=== PATIENT | male | born 1940 | race Caucasian/White ===

== ENCOUNTER → 2016-07-15 | Outpatient (CLI) | payer OTHER | LOC: FLAB 09:19 | PROVIDERS: ATTEND Internal Medicine Cardiovascular Disease | DX: Z03.89 Encounter for observation for other suspected diseases and conditions ruled out (principal) ==

== ENCOUNTER → 2016-09-03 | Outpatient (CLI) | payer OTHER | LOC: FIMAGING 08:20 | PROVIDERS: ATTEND Specialist | DX: Z00.01 Encounter for general adult medical examination with abnormal findings (principal); N20.9 Urinary calculus, unspecified ==

== ENCOUNTER → 2017-10-18 | Outpatient (CLI) | payer OTHER | LOC: FIMAGING 09:11 | PROVIDERS: ATTEND Specialist | DX: Z09 Encounter for follow-up examination after completed treatment for conditions other than malignant neoplasm (principal); N20.0 Calculus of kidney ==

== ENCOUNTER → 2018-03-20 | Outpatient (CLI) | payer OTHER | LOC: FIMAGING 11:12 | PROVIDERS: ATTEND Internal Medicine | DX: M25.551 Pain in right hip (principal) ==

== ENCOUNTER 2018-05-19 12:05 | Day surgery (SDC) | payer OTHER ==
[~2018-05-19 12:05] MED LIST: ALTEPLASE 2 MG VIAL IVP PRN; FLUMAZENIL 0.5 MG/5 ML MDV IVP PRN; GLUCAGON HCL 1 MG VIAL IVP PRN; HEPARIN 10,000 UNIT/10 ML MDV (1,000 UNIT/ML) IVP PRN; MEPERIDINE 25 MG/ML SYR IVP PRN; MIDAZOLAM 2 MG/2 ML VIAL IVP PRN; NALOXONE HCL 0.4 MG/ML INJ IVP PRN; NS 1,000 ML IV SCH; PROTAMINE SULFATE 50 MG/5 ML VIAL IVP PRN; fentaNYL 100 MCG/2 ML INJ IVP PRN
[2018-05-19] MEDS ORDERED: IOPAMIDOL (ISOVUE-M 300) 15 ML VIAL ONE (13:07)
[2018-05-19] MEDS ORDERED: TRIAMCINOLONE ACETONIDE 200 MG/5 ML MDV IM ONE (13:07)
[2018-05-19] MEDS ORDERED: MIDAZOLAM 2 MG/2 ML VIAL ONE (13:18)
[2018-05-19] MEDS ORDERED: fentaNYL 100 MCG/2 ML INJ ONE (13:18)
[2018-05-19] MEDS ORDERED: ONDANSETRON 4 MG/2 ML VIAL IVP PRN (14:06)
--- NOTE | 2018-05-19 14:06 | PDPROPOC ---
Sedation Plan of Care ASA Classification: ASA 2 Mallampati Score: Class 2 Mallampati Reference Image:
--- NOTE | 2018-05-19 14:07 | PDRADPN ---
Radiology Procedure Note Date of Procedure: 05/19/18 Radiologist: Jamey Thurston Anesthesia: IV Sedation Pre-op Diagnosis: back pain Post-op Diagnosis: same Procedure: L4-L5 PRADEEP, L4 selective nerve root block on right Inf/Abcess present in the surg proc area at time of surgery?: No
--- NOTE | 2018-05-19 14:07 | PDRADPRE ---
Radiology History & Physical Indication for procedure: back pain Home medications: Acetaminophen with Codeine [Acetaminophen-Cod #3 Tablet] 1 each PO DAILY PRN 09/04 [Last Taken 05/14/18] Atorvastatin Calcium [Lipitor 20 mg (*)] 20 mg PO DAILY 12/24/14 [Last Taken ] Butal/Asp/Caffeine-Fiorinal [Fiorinal 50-325-40 mg Cap] 1 each PO Q4 PRN [Last Taken 04/24/18] Calcium Carb W/Vit D [Calcium Carb W/Vit D 500/200 (*)] 500 mg PO EVERY OTHER DAY 12/24/14 [Last Taken 05/14/18] Furosemide [Lasix 80 MG (*)] 40 mg PO BID 12/24/14 [Last Taken 05/15/18] Herbals/Supplements -Info Only 1 ea PO DAILY 12/24/14 [Last Taken 04/21/16] Magnesium Oxide [Magnesium Oxide 400 mg (*)] 200 mg PO EVERY OTHER DAY 12/24/14 [Last Taken 05/14/18] Multivitamins [Multivitamin (*)] 1 each PO DAILY 12/24/14 [Last Taken 05/15/18] PHENobarbital [PHENOBARBITAL] 32.4 mg PO HS 12/24/14 [Last Taken 05/14/18] Potassium Chloride [Klor-Con 10] 10 meq PO EVERY OTHER DAY 12/24/14 [Last Taken 05/14/18] SUMAtriptan [Imitrex 25 MG (*)] 25 mg PO Q2H PRN 12/24/14 [Last Taken 12/13/14] Zolpidem Tartrate [Ambien 10 mg] 10 mg PO HS PRN 12/24/14 [Last Taken 02/21/16] Excedrin Migraine Geltab 250 mg PO PRN 04/22/16 [Last Taken 05/15/18] GABAPENTIN 600 mg PO BID 04/22/16 [Last Taken 05/15/18] Allergies/Adverse Reactions: sulfamethoxazole [From Bactrim] Allergy (Mild, Verified 05/20/16 09:51) shakes trimethoprim [From Bactrim] Allergy (Verified 03/21/14 09:30) Mental status: A&Ox3
[2018-05-19 14:48] VITALS: BP 134/83
== END 2018-05-19 14:59 | disposition home or self-care (01) ==
LOC: FIMAGING 12:05
PROVIDERS: ATTEND Radiology Diagnostic Radiology
DX: M54.16 Radiculopathy, lumbar region (principal)
CPT/HCPCS: J2250; J3010; J3301; Q9967

== ENCOUNTER 2018-09-11 12:04 | Day surgery (SDC) | payer OTHER ==
[2018-09-11] MEDS ORDERED: fentaNYL 100 MCG/2 ML INJ IVP PRN (12:05)
[2018-09-11] MEDS ORDERED: FLUMAZENIL 0.5 MG/5 ML MDV IVP PRN (12:05)
[2018-09-11] MEDS ORDERED: NALOXONE HCL 0.4 MG/ML INJ IVP PRN (12:05)
[2018-09-11] MEDS ORDERED: MEPERIDINE 25 MG/ML SYR IVP PRN (12:05)
[2018-09-11] MEDS ORDERED: MIDAZOLAM 2 MG/2 ML VIAL IVP PRN (12:05)
[2018-09-11] MEDS ORDERED: NS 1,000 ML IV SCH (12:15)
--- NOTE | 2018-09-11 13:19 | PDRADPRE ---
Radiology History & Physical Indication for procedure: back pain Home medications: Acetaminophen with Codeine [Acetaminophen-Cod #3 Tablet] 1 each PO DAILY PRN 09/04 [Last Taken 05/14/18] Atorvastatin Calcium [Lipitor 20 mg (*)] 20 mg PO DAILY 12/24/14 [Last Taken ] Butal/Asp/Caffeine-Fiorinal [Fiorinal 50-325-40 mg Cap] 1 each PO Q4 PRN [Last Taken 04/24/18] Calcium Carb W/Vit D [Calcium Carb W/Vit D 500/200 (*)] 500 mg PO EVERY OTHER DAY 12/24/14 [Last Taken 05/14/18] Furosemide [Lasix 80 MG (*)] 40 mg PO BID 12/24/14 [Last Taken 05/15/18] Herbals/Supplements -Info Only 1 ea PO DAILY 12/24/14 [Last Taken 04/21/16] Magnesium Oxide [Magnesium Oxide 400 mg (*)] 200 mg PO EVERY OTHER DAY 12/24/14 [Last Taken 05/14/18] Multivitamins [Multivitamin (*)] 1 each PO DAILY 12/24/14 [Last Taken 05/15/18] PHENobarbital [PHENOBARBITAL] 32.4 mg PO HS 12/24/14 [Last Taken 05/14/18] Potassium Chloride [Klor-Con 10] 10 meq PO EVERY OTHER DAY 12/24/14 [Last Taken 05/14/18] SUMAtriptan [Imitrex 25 MG (*)] 25 mg PO Q2H PRN 12/24/14 [Last Taken 12/13/14] Zolpidem Tartrate [Ambien 10 mg] 10 mg PO HS PRN 12/24/14 [Last Taken 02/21/16] Excedrin Migraine Geltab 250 mg PO PRN 04/22/16 [Last Taken 05/15/18] GABAPENTIN 600 mg PO BID 04/22/16 [Last Taken 05/15/18] Allergies/Adverse Reactions: sulfamethoxazole [From Bactrim] Allergy (Mild, Verified 05/20/16 09:51) shakes trimethoprim [From Bactrim] Allergy (Verified 09/11/18 12:36) shakes Mental status: A&Ox3
--- NOTE | 2018-09-11 13:19 | PDPROPOC ---
Sedation Plan of Care ASA Classification: ASA 2 Mallampati Score: Class 2 Mallampati Reference Image:
[2018-09-11] MEDS ORDERED: TRIAMCINOLONE ACETONIDE 200 MG/5 ML MDV IM ONE (13:36)
[2018-09-11] MEDS ORDERED: IOPAMIDOL (ISOVUE-M 300) 15 ML VIAL ONE (13:36)
[2018-09-11] MEDS ORDERED: ONDANSETRON 4 MG/2 ML VIAL IVP PRN (14:03)
--- NOTE | 2018-09-11 14:04 | PDRADPN ---
Radiology Procedure Note Date of Procedure: 09/11/18 Radiologist: Jamey Thurston Anesthesia: IV Sedation Pre-op Diagnosis: back pain Post-op Diagnosis: same Procedure: L4-L5 PRADEEP, right L4 SNRB Inf/Abcess present in the surg proc area at time of surgery?: No
[2018-09-11 15:33] VITALS: BP 152/94
== END 2018-09-11 15:37 | disposition home or self-care (01) ==
LOC: FIMAGING 12:04
PROVIDERS: ATTEND Physician Assistant
DX: M54.17 Radiculopathy, lumbosacral region (principal)
CPT/HCPCS: J2250; J2310; J3010; J3301; Q9967

== ENCOUNTER 2018-10-03 12:29 | Inpatient (IN) | payer OTHER ==
--- NOTE | 2018-10-03 13:03 | EDPHY ---
H & P Stated Complaint: c/o worsening R lower back pain, hx bulging disc at L4-5 Time Seen by Provider: 10/03/18 13:02 - Personal History Tetanus Vaccine Date: within 10 years - Medical/Surgical History Hx Asthma: No Hx Chronic Respiratory Disease: No Hx Diabetes: No Hx Cardiac Disease: Yes Hx Renal Disease: No Hx Cirrhosis: No Hx Alcoholism: No Hx HIV/AIDS: No Hx Splenectomy or Spleen Trauma: No Other PMH: atrial fib (failed CV 5 years ago), pacemaker placed, hypertension, hyperlipidemia, bilat lower extremity edema. CHF, seizure (syncopal petite mal) , migraine, prostate cancer, kidney stones present in both kidneys - Social History Smoking Status: Former smoker Constitutional: Initial Vital Signs Temperature (C) 36.7 C 10/03/18 12:33 Heart Rate 70 10/03/18 12:33 Respiratory Rate 18 10/03/18 12:33 Blood Pressure 148/75 H 10/03/18 12:33 O2 Sat (%) 99 10/03/18 12:33 O2 Delivery Mode Room Air Allergies/Adverse Reactions: sulfamethoxazole [From Bactrim] Allergy (Mild, Verified 10/03/18 12:38) shakes trimethoprim [From Bactrim] Allergy (Verified 10/03/18 12:38) shakes Home Medications: Medication Instructions Recorded Acetaminophen with Codeine 1 each PO DAILY PRN 12/24/14 [Acetaminophen-Cod #3 Tablet] Atorvastatin Calcium [Lipitor 20 20 mg PO DAILY 12/24/14 mg (*)] Calcium Carb W/Vit D [Calcium Carb 500 mg PO EVERY OTHER DAY 12/24/14 W/Vit D 500/200 (*)] Furosemide [Lasix 80 MG (*)] 40 mg PO BID 12/24/14 Herbals/Supplements -Info Only 1 ea PO DAILY 12/24/14 Multivitamins [Multivitamin (*)] 1 each PO DAILY 12/24/14 PHENobarbital [PHENOBARBITAL] 32.4 mg PO HS 12/24/14 Potassium Chloride [Klor-Con 10] 10 meq PO EVERY OTHER DAY 12/24/14 SUMAtriptan [Imitrex 25 MG (*)] 25 mg PO Q2H PRN 12/24/14 Zolpidem Tartrate [Ambien 10 mg] 10 mg PO HS PRN 12/24/14 Metoprolol Tartrate [Lopressor 25 12.5 mg PO BID #90 tab 01/10/15 mg (*)] Pantoprazole Sodium [Protonix 40mg 40 mg PO BID #60 tab 04/14/15 (*)] Excedrin Migraine Geltab 250 mg PO PRN 04/22/16 GABAPENTIN 600 mg PO BID 04/22/16 Medical Decision Making - Diagnostics Imaging Results: Imaging Impressions Lumbar Spine CT 10/03/18 13:47 Impression: Multilevel degenerative disk disease, worse at L4-L5 where there is severe spinal canal stenosis and right lateral disk protrusion/extrusion causing severe right neural foraminal and impingement of the exiting nerve in the lateral recess. Findings and recommendations discussed with Hal Longo MD at 1616 hour, . Myelogram,Lumbar Spine 10/03/18 14:29 Impression: Successful injection of intrathecal contrast. Plan: CT myelogram to follow. Imaging: Discussed imaging studies w/ malware analyst Radiologist, I viewed and interpreted images myself ED Course/Re-evaluation: CHIEF COMPLAINT: Right lower back pain HISTORY OF PRESENT ILLNESS: The patient is a 78 y/o male with a history of an L4-5 disc herniation, lumbar vertebroplasty, atrial fibrillation, pacemaker, and kidney stones complaining of worsening right lower back pain onset at 14:00 yesterday, 23 hours ago. In May and August he had a spinal injection by Dr. Thurston. He had an x-ray recently which showed no acute findings. After developing the pain yesterday he noted that the pain starts below his right kidney, through his hip, and down to his right toes. Due to the pain he is having difficulty bearing weight. He did take a steroid taper today without relief of symptoms. No fever, headache, body aches, lightheadedness, chest pain, heart palpitations, shortness of breath, cough, abdominal pain, urinary or bowel complaints, numbness, paresthesias. REVIEW OF SYSTEMS: A comprehensive 10 system review of systems is otherwise negative aside from elements mentioned in the history of present illness and medical decision making. PHYSICAL EXAM: HR, BP, O2 Sat, RR. Temp noted General Appearance: Alert, well hydrated, appropriate, and non-toxic appearing. Head: Atraumatic without scalp tenderness or obvious injury Eyes: Pupils equal, round, reactive to light and accommodation, EOMI, no trauma , no injection. Ears: Clear bilaterally, no perforation, normal landmarks Nose: Atraumatic, no rhinorrhea, clear. Throat: There is no erythema or exudates, no lesions, normal tonsils, mucus membranes moist. Neck: Supple, 2+ carotid upstroke, nontender, no lymphadenopathy. Respiratory: No retractions, no distress, no wheezes, and no accessory muscle use. Lungs are clear to auscultation bilaterally. Cardiovascular: Regular rate and rhythm, no murmurs, rubs, or gallops. Bilateral carotid, radial, dorsalis pedis, and posterior tibial pulses intact. Good capillary refill all extremities. Gastrointestinal: Abdomen is soft, nontender, non-distended, no masses, no rebound, no guarding, no peritoneal signs. Musculoskeletal: Normal active ROM of all extremities, atraumatic. Neurological: Alert, appropriate, and interactive. The patient has normal DTRs and non-focal cranial nerves, motor, sensory, and cerebellar exam. Skin: No rashes, good turgor, no nodules on palpation. Past medical history: Atrial fib (failed CV 5 years ago), L4-5 disc herniation, hypertension, hyperlipidemia, bilateral lower extremity edema. CHF, seizure ( syncopal petite mal), migraine, prostate cancer, kidney stones present in both kidneys Past surgical history: Pacemaker, lumbar vertebroplasty Family history: Denies Social history: Lives in [place], , at bedside DIAGNOSTICS/PROCEDURES/CRITICAL CARE TIME: Lumbar CT myelogram: L4/5 acute disc extrusion impinging on the L4/5 nerve root. DIFFERENTIAL DIAGNOSIS: The differential diagnosis for the patient's back pain included but was not limited to musculoskeletal pain, epidural abscess, herniated disk, spinal fracture, and intra-abdominal causes including urinary system. MEDICAL DECISION MAKING: The patient is a 78 y/o male with a history of an L4-5 disc herniation, lumbar vertebroplasty, atrial fibrillation, pacemaker, and kidney stones presenting with worsening right lower back pain radiating down his leg, onset at 14:00 yesterday, 23 hours ago. After developing the pain yesterday he noted that the pain starts below his right kidney, through his hip, and down to his right toes. Due to the pain he is having difficulty bearing weight. There are no other acute exam findings besides his subjective pain. Labs and lumbar CT ordered. I am unable to order a lumbar MRI, which is the preferred test, due to patient's pacemaker which is not MRI compatible. 1451: Patient is still in pain; 1mg IV Dilaudid administered. CT findings still pending. 1615: I spoke with Dr. Thurston, radiologist, regarding patient's CT myelogram. The patient has an L4/5 acute disc extrusion impinging on the L4/5 nerve root. I will page neurosurgery and the hospitalist as this patient will need to be admitted for pain control. I will not administer a steroid as this patient took one this morning. 1618: I consulted with the hospitalist service, Dr. Juarez accepts admission of this patient. 1622: I consulted with MARIELA Mcdonald for [facility], regarding this patient. He agrees to consult on this patient during his admission. 1627: Reassessed patient and discussed imaging findings. I have also discussed plans for admission, which he is comfortable with. Patient is still in pain; additional 1mg IV Dilaudid administered. - Data Points Laboratory Results: Laboratory Results 10/03/18 13:30 10/03/18 10/03/18 10/03/18 13:33 13:30 13:30 WBC 5.94 10^3/uL 10^3/uL (3.80-9.50) RBC 4.40 10^6/uL 10^6/uL (4.40-6.38) Hgb 13.9 g/dL g/dL (13.7-17.5) POC Hgb 13.3 gm/dL L gm/dL (13.7-17.5) Hct 42.1 % % (40.0-51.0) POC Hct 39 % L % (40-51) MCV 95.7 fL fL (81.5-99.8) MCH 31.6 pg pg (27.9-34.1) MCHC 33.0 g/dL g/dL (32.4-36.7) RDW 12.4 % % (11.5-15.2) Plt Count 165 10^3/uL 10^3/uL (150-400) MPV 10.0 fL fL (8.7-11.7) Neut % (Auto) 85.6 % H % (39.3-74.2) Lymph % (Auto) 10.1 % L % (15.0-45.0) [place] % (Auto) 3.2 % L % (4.5-13.0) Eos % (Auto) 0.3 % L % (0.6-7.6) Baso % (Auto) 0.3 % % (0.3-1.7) Nucleat RBC Rel Count 0.0 % % (0.0-0.2) Absolute Neuts (auto) 5.08 10^3/uL 10^3/uL (1.70-6.50) Absolute Lymphs (auto) 0.60 10^3/uL L 10^3/uL (1.00-3.00) Absolute Monos (auto) 0.19 10^3/uL L 10^3/uL (0.30-0.80) Absolute Eos (auto) 0.02 10^3/uL L 10^3/uL (0.03-0.40) Absolute Basos (auto) 0.02 10^3/uL 10^3/uL (0.02-0.10) Absolute Nucleated RBC 0.00 10^3/uL 10^3/uL (0-0.01) Immature Gran % 0.5 % % (0.0-1.1) Immature Gran # 0.03 10^3/uL 10^3/uL (0.00-0.10) PT 11.9 SEC L SEC (12.0-15.0) INR 0.91 (0.83-1.16) APTT 32.6 SEC SEC (23.0-38.0) POC Sodium 141 mEq/L mEq/L (135-145) POC Potassium 4.3 mEq/L mEq/L (3.3-5.0) POC Chloride 103 mEq/L mEq/L (97-110) POC Total CO2 29 mEq/L mEq/L (22-31) POC BUN 30 mg/dL H mg/dL (7-23) POC Creatinine 1.3 mg/dL mg/dL (0.7-1.3) POC Glucose 117 mg/dL H mg/dL (70-100) Medications Given: Discontinued Medications Hydromorphone HCl (Dilaudid) 1 mg IVP EDNOW ONE Stop: 10/03/18 14:52 Last Admin: 10/03/18 14:55 Dose: 1 mg Sodium Chloride (Ns) 500 mls @ 1,000 mls/hr IV EDNOW ONE PRN Reason: Protocol Stop: 10/03/18 15:11 Last Admin: 10/03/18 14:55 Dose: 500 mls Point of Care Test Results: Chemistry 10/03/18 13:33 POC Sodium 141 mEq/L mEq/L (135-145) POC Potassium 4.3 mEq/L mEq/L (3.3-5.0) POC Chloride 103 mEq/L mEq/L (97-110) POC Total CO2 29 mEq/L mEq/L (22-31) POC BUN 30 mg/dL H mg/dL (7-23) POC Creatinine 1.3 mg/dL mg/dL (0.7-1.3) POC Glucose 117 mg/dL H mg/dL (70-100) ISTAT H&H 10/03/18 13:33 POC Hgb 13.3 gm/dL L gm/dL (13.7-17.5) POC Hct 39 % L % (40-51) Departure - Departure Disposition: [facility] Inpatient Acute Clinical Impression: Pain management, Bulging lumbar disc Condition: Fair Report Scribed for: Hal Longo Report Scribed by: Elva Tarango Date of Report: 10/03/18 Time of Report: 13:03
[2018-10-03 14:41] LABS: PLATELET COUNT 165 10^3/uL (150-400)
[2018-10-03] MEDS ORDERED: NS 500 ML IV ONE (14:42)
[2018-10-03 14:47] LABS: INR 0.91 (0.83-1.16); PROTIME(PATIENT) 11.9 SEC (12.0-15.0)
[2018-10-03] MEDS ORDERED: HYDROmorphONE/DILAUDID 2 MG/ML INJ IVP ONE ×2 (14:51→16:28)
[2018-10-03] MEDS ORDERED: IOPAMIDOL (ISOVUE-M 200) 20 ML VIAL ONE (14:54)
[2018-10-03] MEDS ORDERED: LIDOCAINE 1% 300 MG/30 ML SDV ONE (14:54)
[2018-10-03] MEDS ORDERED: ONDANSETRON DISINTEGRATING 4 MG TAB PO PRN (16:31)
[2018-10-03] MEDS ORDERED: ONDANSETRON 4 MG/2 ML VIAL IVP PRN (16:31)
[2018-10-03] MEDS ORDERED: HYDROmorphONE/DILAUDID 1 MG/ML INJ IVP PRN (17:43)
--- NOTE | 2018-10-03 17:49 | PDGENHP ---
History and Physical - Chief Complaint back pain - History of Present Illness 78 yo male with h/o A fib, s/p pacemaker, CAD with prior CABG, hypertension and degenerative disc disease presents to ED with increased LBP. He had an PRADEEP in for a L4-L5 disc and associated nerve impingement. He says his symptoms resolved 100%. However, symptoms came back in 08/2018 and he had another PRADEEP , which resulted in 90% improvement. Today, around 2 pm, he had sudden increased pain in his right low back with radiation to his RLE down into his dumont. He denies bowel or bladder incontinence. He was started on Medrol dose pack by his PCP, Dr. Hager, but came to the ED due to increased pain. No fevers/chills. No CP or SOB. In the ED, CT myelogram was performed due to presence of his pacemaker. This revealed worsening L4-L5 disc protrusion with severe spinal canal stenosis and associated nerve impingement. Neurosurgery consulted in the ED and offered a micro-discectomy, but not until he is off his Aspirin for 7 days. Last ASA dose was this am. He is unable to walk and is admitted for pain control and further management. History Information - Allergies/Home Medication List Allergies/Adverse Reactions: sulfamethoxazole [From Bactrim] Allergy (Mild, Verified 10/03/18 12:38) shakes trimethoprim [From Bactrim] Allergy (Verified 10/03/18 12:38) shakes Home Medications: Acetaminophen with Codeine [Acetaminophen-Cod #3 Tablet] 1 each PO DAILY PRN 09/04 [Last Taken 05/14/18] Atorvastatin Calcium [Lipitor 20 mg (*)] 20 mg PO DAILY 12/24/14 [Last Taken ] Calcium Carb W/Vit D [Calcium Carb W/Vit D 500/200 (*)] 500 mg PO EVERY OTHER DAY 12/24/14 [Last Taken 05/14/18] Furosemide [Lasix 80 MG (*)] 40 mg PO BID 12/24/14 [Last Taken 09/11/18] Herbals/Supplements -Info Only 1 ea PO DAILY 12/24/14 [Last Taken 04/21/16] Multivitamins [Multivitamin (*)] 1 each PO DAILY 12/24/14 [Last Taken 09/10/18] PHENobarbital [PHENOBARBITAL] 32.4 mg PO HS 12/24/14 [Last Taken 09/10/18] Potassium Chloride [Klor-Con 10] 10 meq PO EVERY OTHER DAY 12/24/14 [Last Taken 09/11/18] SUMAtriptan [Imitrex 25 MG (*)] 25 mg PO Q2H PRN 12/24/14 [Last Taken 12/13/14] Zolpidem Tartrate [Ambien 10 mg] 10 mg PO HS PRN 12/24/14 [Last Taken 02/21/16] Excedrin Migraine Geltab 250 mg PO PRN 04/22/16 [Last Taken 05/15/18] GABAPENTIN 600 mg PO BID 04/22/16 [Last Taken 09/10/18] I have personally reviewed and updated: family history, medical history, social history, surgical history - Past Medical History atrial fibrillation, coronary artery disease, hypertension, hyperlipidemia - Surgical History Reports: coronary bypass surgery Additional surgical history: Pacemaker - Family History Positive for: non-pertinent - Social History Smoking Status: Former smoker Alcohol Use: None Drug Use: None Additional social history: , at bedside. Retired. Review of Systems Review of Systems: ROS: 10pt was reviewed & negative except for what was stated in HPI & below Physical Exam Physical Exam: Temp Pulse Resp BP Pulse Ox 36.3 C 72 18 149/93 H 96 10/03/18 17:34 10/03/18 17:34 10/03/18 17:34 10/03/18 17:34 10/03/18 17:34 Constitutional: no apparent distress Eyes: PERRL Ears, Nose, Mouth, Throat: moist mucous membranes Cardiovascular: regular rate and rhythym Respiratory: no respiratory distress, clear to auscultation Gastrointestinal: normoactive bowel sounds, soft, non-tender abdomen Skin: warm Musculoskeletal: other (b/l brawny LE edema) Neurologic: AAOx3, other (RLE with 4/5 proximal strength, diminished DTR's at patella) Psychiatric: interacting appropriately Lab Data & Imaging Review 10/03/18 13:30 WBC 5.94 10^3/uL (3.80-9.50) 10/03/18 13:30 RBC 4.40 10^6/uL (4.40-6.38) 10/03/18 13:30 Hgb 13.9 g/dL (13.7-17.5) 10/03/18 13:30 POC Hgb 13.3 gm/dL (13.7-17.5) L 10/03/18 13:33 Hct 42.1 % (40.0-51.0) 10/03/18 13:30 POC Hct 39 % (40-51) L 10/03/18 13:33 MCV 95.7 fL (81.5-99.8) 10/03/18 13:30 MCH 31.6 pg (27.9-34.1) 10/03/18 13:30 MCHC 33.0 g/dL (32.4-36.7) 10/03/18 13:30 RDW 12.4 % (11.5-15.2) 10/03/18 13:30 Plt Count 165 10^3/uL (150-400) 10/03/18 13:30 MPV 10.0 fL (8.7-11.7) 10/03/18 13:30 Neut % (Auto) 85.6 % (39.3-74.2) H 10/03/18 13:30 Lymph % (Auto) 10.1 % (15.0-45.0) L 10/03/18 13:30 [place] % (Auto) 3.2 % (4.5-13.0) L 10/03/18 13:30 Eos % (Auto) 0.3 % (0.6-7.6) L 10/03/18 13:30 Baso % (Auto) 0.3 % (0.3-1.7) 10/03/18 13:30 Nucleat RBC Rel Count 0.0 % (0.0-0.2) 10/03/18 13:30 Absolute Neuts (auto) 5.08 10^3/uL (1.70-6.50) 10/03/18 13:30 Absolute Lymphs (auto) 0.60 10^3/uL (1.00-3.00) L 10/03/18 13:30 Absolute Monos (auto) 0.19 10^3/uL (0.30-0.80) L 10/03/18 13:30 Absolute Eos (auto) 0.02 10^3/uL (0.03-0.40) L 10/03/18 13:30 Absolute Basos (auto) 0.02 10^3/uL (0.02-0.10) 10/03/18 13:30 Absolute Nucleated RBC 0.00 10^3/uL (0-0.01) 10/03/18 13:30 Immature Gran % 0.5 % (0.0-1.1) 10/03/18 13:30 Immature Gran # 0.03 10^3/uL (0.00-0.10) 10/03/18 13:30 PT 11.9 SEC (12.0-15.0) L 10/03/18 13:30 INR 0.91 (0.83-1.16) 10/03/18 13:30 APTT 32.6 SEC (23.0-38.0) 10/03/18 13:30 POC Sodium 141 mEq/L (135-145) 10/03/18 13:33 POC Potassium 4.3 mEq/L (3.3-5.0) 10/03/18 13:33 POC Chloride 103 mEq/L (97-110) 10/03/18 13:33 POC Total CO2 29 mEq/L (22-31) 10/03/18 13:33 POC BUN 30 mg/dL (7-23) H 10/03/18 13:33 POC Creatinine 1.3 mg/dL (0.7-1.3) 10/03/18 13:33 POC Glucose 117 mg/dL (70-100) H 10/03/18 13:33 Assessment & Plan Assessment: L4-L5 disc protrusion with radiculopathy - neurosurgery offered microdiscectomy , but not until 7 days ASA free (last dose this am). Will admit for pain control including scheduled max dose tylenol, prn tramadol, dilaudid. Also place lidoderm patch and increase gabapentin from 600 mg BID to TID. PT/OT evals. Have also requested IR consult for am to see if they are able to perform PRADEEP while on ASA. CAD with h/o CABG - chest pain free, cont home meds, awaiting med rec Hypertension - adequate control. Cont home meds once reconciled. A fib - seems to be in NSR here, s/p pacemaker. Not anticoagulated. Chronic HF - euvolemic, monitor Full code Dispo - admit to inpt for acute LBP requiring acute PT/OT and possible IR intervention.
[2018-10-03] MEDS: ACETAMINOPHEN 500 MG TAB PO SCH (18:15)
[2018-10-03] MEDS: oxyCODONE IR 5 MG TAB PO PRN (19:23)
--- NOTE | 2018-10-03 19:36 | GCON ---
[f rep st] CONSULTATION DATE OF CONSULTATION: 10/03/2018 HISTORY OF PRESENT ILLNESS: The patient is a 78-year-old male who presented to the hospital due to increasing right leg pain. He has been experiencing back and right leg pain over the past several months. He has received 2 epidural steroid injections that both provided him with relief for a couple of months. His last injection was at the end of August. Symptoms returned yesterday and are quite severe. Pain is limiting his mobility, and he is unable to weightbear on the right leg. The pain is concentrated at the lower right back going in the gluteal region to the anterior medial thigh and anterior dumont. He denies numbness. No loss of bowel or bladder control. He admits to taking Excedrin with aspirin on a daily basis. PAST MEDICAL HISTORY: Atrial fibrillation, hypertension, hyperlipidemia, CHF, seizure, migraine, prostate cancer, kidney stones. PAST SURGICAL HISTORY: Pacemaker. SOCIAL HISTORY: Patient admits to being a former smoker. ALLERGIES: Sulfa. HOME MEDICATIONS: Tylenol No.3, Lipitor, calcium with vitamin D, Lasix, multivitamin, phenobarbital, potassium chloride, Imitrex, Ambien, metoprolol, Protonix, gabapentin, Excedrin. FAMILY HISTORY: No pertinent neurosurgical family history. REVIEW OF SYSTEMS: Negative except for what is mentioned in the HPI. PHYSICAL EXAM: GENERAL: Patient was seen and examined. Appears in no apparent distress. His affect is appropriate, alert and oriented. NEUROLOGICAL : Pupils are equal and reactive. Facial expression was symmetrical. Tongue is midline with protrusion. Hearing is grossly intact. Speech is fluent without dysarthria. Muscle strength is well preserved in his upper and lower extremities at a 5/5. Sensation was intact to light touch. Back pain was made worse with movement of the right lower extremity. RESULTS: CT myelogram of the lumbar spine: Multilevel degenerative disk disease, worst at L4-5 where there is severe spinal canal stenosis and right lateral disk protrusion/extrusion causing severe right neural foraminal impingement of the exiting nerve in the lateral recess. ASSESSMENT AND PLAN: In summary, the patient is a 78-year-old male with right lower extremity pain. His CT myelogram demonstrates a right-sided disk herniation at L4-L5, causing severe spinal canal stenosis and severe right neural foraminal narrowing. We discussed several treatment options with the patient. He is going to be admitted under Medicine for pain control and physical and occupational therapy. We can proceed with further conservative treatment with an epidural steroid injection pending his Excedrin use. If he would like to proceed with surgical intervention, we could look at doing a microdiskectomy in 1 week after he has been off the Excedrin with aspirin for 7 days. We will continue to follow along. The patient with the examined by myself with Dr. Mercedes Gramajo in the emergency room department at 4:40 p.m. on October 03. /[id number]/MODL [id number]
[2018-10-03] MEDS: LIDOCAINE 4%/MENTHOL 1% PATCH TD SCH (19:52)
[2018-10-03] MEDS: GABAPENTIN 300 MG CAP PO SCH (21:53)
[2018-10-03] MEDS: PATCH REMOVAL 1 EA PATCH TD SCH (22:37)
[2018-10-03] MEDS: PANTOPRAZOLE SODIUM 40 MG TAB PO SCH (22:43)
[2018-10-03] MEDS: PHENobarbital 30 MG TAB PO SCH (22:43)
[2018-10-04] MEDS: ACETAMINOPHEN 500 MG TAB PO SCH ×3 (00:28→19:56)
[2018-10-04] MEDS: traMADol 50 MG TAB PO PRN ×3 (00:28→17:27)
[2018-10-04] MEDS: oxyCODONE IR 5 MG TAB PO PRN ×2 (05:39→10:58)
[2018-10-04] MEDS ORDERED: FUROSEMIDE 40 MG TAB PO SCH (06:00)
--- NOTE | 2018-10-04 07:52 | SOAPPROG ---
[facility] Progress Note Assessment/Plan: Assessment: 78 yo M with right leg radicular symptoms likely from L4/5 DJD/disc herniation Plan: neuro: stable plan for epidural injection today npo for injection PT/OT if pain does not improve, then we can consider microdiscectomy next week please call with neuro changes discussed with Dr Gramajo 10/04/18 07:51 Subjective: continued right leg pain, no weakness, no ataxia or bowel/bladder problems. Objective: Vital Signs Temp Pulse Resp BP Pulse Ox 37.1 C 71 16 143/91 H 93 10/04/18 07:44 10/04/18 07:44 10/04/18 07:44 10/04/18 07:44 10/04/18 07:44 10/03/18 10/04/18 10/05/18 05:59 05:59 05:59 Intake Total 1000 Output Total 750 200 Balance 250 -200 PT 11.9 SEC (12.0-15.0) L 10/03/18 13:30 INR 0.91 (0.83-1.16) 10/03/18 13:30 AAOx4, + FC PERRL, EOMI, no facial droop 5/5 + light touch ICD10 Worksheet Patient Problems: Problems Problem Status Onset Bulging lumbar disc Acute Pain management Acute CAD in [place] artery Acute Elevated troponin Acute Lightheadedness Acute S/P CABG x 3 Acute S/P ablation of atrial fibrillation Acute S/P mitral valve repair Acute S/P placement of cardiac pacemaker Acute S/P tricuspid valve repair Acute Severe mitral regurgitation Acute Severe tricuspid regurgitation Acute Chronic anticoagulation Chronic Chronic atrial fibrillation Chronic
[2018-10-04] MEDS: LIDOCAINE 4%/MENTHOL 1% PATCH TD SCH (08:32)
[2018-10-04] MEDS: METOPROLOL TARTRATE 25 MG TAB PO SCH ×2 (08:33→20:46)
[2018-10-04] MEDS: GABAPENTIN 300 MG CAP PO SCH ×3 (08:36→20:46)
[2018-10-04] MEDS: ATORVASTATIN CALCIUM 20 MG TAB PO SCH (08:36)
[2018-10-04] MEDS ORDERED: methylPREDNISolone 4 MG TAB PO ONE (09:00)
--- NOTE | 2018-10-04 10:00 | HOSPPROG ---
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 - plan for PRADEEP today - checking with IR to confirm safety of PRADEEP while on asa - nsg considering microdiskectomy in 1 week (off asa) - patient considering Dr Yi in [place] - increase oxy frequency - cont lidocaine patch, oxy, solu-medrol, tramadol # CAD s/p CABG in 2014 - hold asa as above for now - cont metop/statin # chronic dCHF - euvolemic - lasix # a-fib/ppm - prevents MRI - s/p MAZE, currently regular rhythm on exam Subjective: still with severe low back pain and R leg pain Objective: Vital Signs Temp Pulse Resp BP Pulse Ox 37.1 C 7 L 16 143/91 H 93 10/04/18 07:44 10/04/18 08:33 10/04/18 07:44 10/04/18 08:33 10/04/18 07:44 10/03/18 10/04/18 10/05/18 05:59 05:59 05:59 Intake Total 1000 Output Total 750 200 Balance 250 -200 PT 11.9 SEC (12.0-15.0) L 10/03/18 13:30 INR 0.91 (0.83-1.16) 10/03/18 13:30 CT myelogram reviewed chart reviewed - Physical Exam Constitutional: no apparent distress, appears nourished Cardiovascular: regular rate and rhythym, no murmur, rub, or gallop Respiratory: no respiratory distress, no rales or rhonchi, clear to auscultation Gastrointestinal: normoactive bowel sounds, soft, non-tender abdomen, No guarding, No rebound, No distension ICD10 Worksheet Patient Problems: Problems Problem Status Onset Bulging lumbar disc Acute Pain management Acute CAD in [place] artery Acute Elevated troponin Acute Lightheadedness Acute S/P CABG x 3 Acute S/P ablation of atrial fibrillation Acute S/P mitral valve repair Acute S/P placement of cardiac pacemaker Acute S/P tricuspid valve repair Acute Severe mitral regurgitation Acute Severe tricuspid regurgitation Acute Chronic anticoagulation Chronic Chronic atrial fibrillation Chronic
--- NOTE | 2018-10-04 11:28 | PDMN ---
Medical Necessity Medical [place] [facility] [place], A-1 day: 78 yo w/ severe lower back pain and R leg pain. Eval reveals L4-5 severe spinal canal stenosis associated w/ nerve impingement. Pt unable to ambulate. Neurosurg and IR consults. PT/OT. Pain management. Meets MCG IP criteria for back pain w/ progressive or severe neurologic deficit, inability to ambulate, severe pain. Plan for epidural injection by IR, potential for neurosurg next week. Hx afib, CAD, HTN, HLD, CABG, pacer
--- NOTE | 2018-10-04 12:32 | ASMTCMCOM ---
CM Note CM Note Notes: Reviewed chart, pt admitted for back pain. He has been treated for L4/L5 issues in the past and has a hx of cardiac issues. Pt lives at home with his , may get injection as he has in the past, dc needs uncertain. DC Plan: TBD Date Signed: 10/04/2018 12:31 PM Electronically Signed By:Tami Swartz RN
[2018-10-04] MEDS ORDERED: ALTEPLASE 2 MG VIAL IVP PRN (13:26)
[2018-10-04] MEDS ORDERED: MEPERIDINE 25 MG/ML SYR IVP PRN (13:26)
[2018-10-04] MEDS ORDERED: NALOXONE HCL 0.4 MG/ML INJ IVP PRN (13:26)
[2018-10-04] MEDS ORDERED: FLUMAZENIL 0.5 MG/5 ML MDV IVP PRN (13:26)
[2018-10-04] MEDS ORDERED: HEPARIN 10,000 UNIT/10 ML MDV (1,000 UNIT/ML) IVP PRN (13:26)
[2018-10-04] MEDS ORDERED: PROTAMINE SULFATE 50 MG/5 ML VIAL IVP PRN (13:26)
[2018-10-04] MEDS ORDERED: MIDAZOLAM 2 MG/2 ML VIAL IVP PRN (13:26)
[2018-10-04] MEDS ORDERED: fentaNYL 100 MCG/2 ML INJ IVP PRN (13:26)
[2018-10-04] MEDS ORDERED: TRIAMCINOLONE ACETONIDE 200 MG/5 ML MDV IM ONE (13:30)
[2018-10-04] MEDS ORDERED: IOPAMIDOL (ISOVUE-M 300) 15 ML VIAL ONE (13:30)
[2018-10-04] MEDS ORDERED: NS 1,000 ML IV SCH (13:30)
--- NOTE | 2018-10-04 14:32 | PDPROPOC ---
Sedation Plan of Care ASA Classification: ASA 2 Mallampati Score: Class 2 Mallampati Reference Image:
--- NOTE | 2018-10-04 14:33 | PDRADPN ---
Radiology Procedure Note Date of Procedure: 10/04/18 Radiologist: Jamey Thurston Anesthesia: IV Sedation Pre-op Diagnosis: L4-L5 disc herniation Post-op Diagnosis: same Procedure: Right L4 SNRB Inf/Abcess present in the surg proc area at time of surgery?: No
[2018-10-04] MEDS: PANTOPRAZOLE SODIUM 40 MG TAB PO SCH (20:46)
[2018-10-04] MEDS: PHENobarbital 30 MG TAB PO SCH (23:22)
[2018-10-05] MEDS: ACETAMINOPHEN 500 MG TAB PO SCH ×3 (02:10→16:50)
[2018-10-05] MEDS: traMADol 50 MG TAB PO PRN ×3 (02:35→21:14)
[2018-10-05] MEDS: PATCH REMOVAL 1 EA PATCH TD SCH (03:20)
[2018-10-05] MEDS: oxyCODONE IR 5 MG TAB PO PRN ×5 (03:25→23:25)
--- NOTE | 2018-10-05 07:26 | NEUSURGPN ---
Assessment/Plan: Assessment: 78 yo M with right leg radicular symptoms likely from L4/5 DJD/disc herniation Plan: neuro: stable s/p L4/5 PRADEEP with pain reduction to 2/10 over night but has increased to 9/10 again this morning. Discussed steroid component of injection can take up 10-14 to reach full benefit PT/OT if pain does not improve, then we can consider microdiscectomy next week NO ASA or blood thinners. Lovenox okay for DVT prophx please call with neuro changes discussed with Dr Gramajo Subjective: leg pain improved over night but now returned Objective: NAD A&Ox3 MAEx4 09/24 except in right HF, limited to pain Positive right straight leg raise Sensation intact to light touch - Physician Discussed Patient with : [facility] Physical Exam - Vitals, I&O, Labs I and O 10/04/18 10/05/18 10/06/18 05:59 05:59 05:59 Intake Total 1000 1800 Output Total 750 1800 Balance 250 0 Weight 86.9 kg 86.94 kg Intake: Oral (ml) 500 1800 IV Infused (ml) 500 Output: Urine (ml) 750 1800 Urinal 750 1800 Other: Intake Quantity Yes Yes Sufficient Number of Voids Urinal 1 1 Vital Signs Temp Pulse Resp BP Pulse Ox 36.8 C 73 17 130/83 H 95 10/05/18 02:19 10/05/18 02:19 10/05/18 02:19 10/05/18 02:19 10/05/18 02:19 ICD10 Worksheet Patient Problems: Problems Problem Status Onset Bulging lumbar disc Acute Pain management Acute CAD in [place] artery Acute Elevated troponin Acute Lightheadedness Acute S/P CABG x 3 Acute S/P ablation of atrial fibrillation Acute S/P mitral valve repair Acute S/P placement of cardiac pacemaker Acute S/P tricuspid valve repair Acute Severe mitral regurgitation Acute Severe tricuspid regurgitation Acute Chronic anticoagulation Chronic Chronic atrial fibrillation Chronic
[2018-10-05] MEDS: METOPROLOL TARTRATE 25 MG TAB PO SCH ×2 (08:23→21:10)
[2018-10-05] MEDS: ATORVASTATIN CALCIUM 20 MG TAB PO SCH (08:24)
[2018-10-05] MEDS: GABAPENTIN 300 MG CAP PO SCH ×3 (08:24→21:08)
[2018-10-05] MEDS: LIDOCAINE 4%/MENTHOL 1% PATCH TD SCH (08:26)
[2018-10-05] MEDS: POTASSIUM CL 10 MEQ TAB PO SCH (08:30)
[2018-10-05] MEDS ORDERED: LIDOCAINE 1% 300 MG/30 ML SDV ONE (08:45)
[2018-10-05] MEDS ORDERED: methylPREDNISolone 4 MG TAB PO ONE (09:00)
--- NOTE | 2018-10-05 16:37 | HOSPPROG ---
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 - s/p PRADEEP yesterday without clear improvement - Dr Chamorro to consult tomorrow am per patient's request; - ?microdiskectomy in 1 week (off asa) - increase oxy - cont lidocaine patch, oxy, solu-medrol, tramadol # CAD s/p CABG in 2014 - hold asa as above for now - cont metop/statin # chronic dCHF - euvolemic - lasix # a-fib/ppm - prevents MRI - s/p MAZE Subjective: still in severe pain; Objective: Vital Signs Temp Pulse Resp BP Pulse Ox 36.5 C 73 16 127/77 H 94 10/05/18 16:00 10/05/18 16:00 10/05/18 16:00 10/05/18 16:00 10/05/18 16:00 10/04/18 10/05/18 10/06/18 05:59 05:59 05:59 Intake Total 1000 1800 Output Total 750 1800 400 Balance 250 0 -400 PT 11.9 SEC (12.0-15.0) L 10/03/18 13:30 INR 0.91 (0.83-1.16) 10/03/18 13:30 - Physical Exam Constitutional: uncomfortable Eyes: anicteric sclera Cardiovascular: No edema Respiratory: no respiratory distress Gastrointestinal: No distension Genitourinary: No [place] in urethra Skin: warm Musculoskeletal: no muscle tenderness Neurologic: AAOx3 ICD10 Worksheet Patient Problems: Problems Problem Status Onset CAD in [place] artery Acute S/P CABG x 3 Acute S/P mitral valve repair Acute S/P tricuspid valve repair Acute S/P ablation of atrial fibrillation Acute Severe mitral regurgitation Acute Severe tricuspid regurgitation Acute Chronic atrial fibrillation Chronic Chronic anticoagulation Chronic S/P placement of cardiac pacemaker Acute Lightheadedness Acute Elevated troponin Acute Pain management Acute Bulging lumbar disc Acute
[2018-10-05] MEDS: PANTOPRAZOLE SODIUM 40 MG TAB PO SCH (21:08)
[2018-10-05] MEDS: PHENobarbital 30 MG TAB PO SCH (21:14)
[2018-10-06] MEDS: ACETAMINOPHEN 500 MG TAB PO SCH ×3 (02:32→18:13)
[2018-10-06] MEDS: PATCH REMOVAL 1 EA PATCH TD SCH ×2 (02:36→20:57)
[2018-10-06] MEDS: oxyCODONE IR 5 MG TAB PO PRN ×4 (02:57→19:26)
--- NOTE | 2018-10-06 08:27 | HOSPPROG ---
Hospitalist Progress Note Assessment/Plan: #L4-5 disc herniation: still having significant pain -s/p nerve block yesterday -Pedro Pablo plans for surgery Tues -Medrol pack, increase Gabapentin -increased fall-risk, PT #CAD: CABG 2014 -BB, statin. Restart ASA per NSGY #Compensated diastolic HF: Lasix, BB #A fib: pacer, s/p MAZE #Diet: regular Inpatient admission for pain control, PT Subjective: lumbar back pain radiating down right leg Objective: Vital Signs Temp Pulse Resp BP Pulse Ox 36.8 C 71 17 157/95 H 93 10/06/18 07:42 10/06/18 07:42 10/06/18 07:42 10/06/18 07:42 10/06/18 07:42 10/05/18 10/06/18 10/07/18 05:59 05:59 05:59 Intake Total 1800 Output Total 1800 800 300 Balance 0 -800 -300 PT 11.9 SEC (12.0-15.0) L 10/03/18 13:30 INR 0.91 (0.83-1.16) 10/03/18 13:30 - Time Spent With Patient Time Spent with Patient: greater than 35 minutes Time Spent with Patient: Greater than 35 minutes spent on this patients care, greater than 50% of time spent counseling, educating, and coordinating care regarding the above mentioned plan. - Physical Exam Constitutional: obese, uncomfortable Ears, Nose, Mouth, Throat: moist mucous membranes Cardiovascular: regular rate and rhythym Respiratory: no respiratory distress Gastrointestinal: normoactive bowel sounds Genitourinary: No [place] in urethra Skin: warm Musculoskeletal: other (decreased ROM right leg due to back and leg pain) Neurologic: AAOx3, CN II-XII Intact Psychiatric: interacting appropriately ICD10 Worksheet Patient Problems: Problems Problem Status Onset Bulging lumbar disc Acute Pain management Acute CAD in [place] artery Acute Elevated troponin Acute Lightheadedness Acute S/P CABG x 3 Acute S/P ablation of atrial fibrillation Acute S/P mitral valve repair Acute S/P placement of cardiac pacemaker Acute S/P tricuspid valve repair Acute Severe mitral regurgitation Acute Severe tricuspid regurgitation Acute Chronic anticoagulation Chronic Chronic atrial fibrillation Chronic
[2018-10-06] MEDS ORDERED: methylPREDNISolone 4 MG TAB PO ONE (09:00)
--- NOTE | 2018-10-06 09:09 | NEUSURGPN ---
Assessment/Plan: Assessment: 78 yo M with right leg radicular symptoms likely from L4/5 DJD/disc herniation Plan: neuro: stable s/p L4/5 PRADEEP with pain reduction to 2/10 over night but pain has returned PT/OT Plan for surgery with Dr. Chamorro on Tuesday or Tuesday with a L4/5 microdiscectomy NO ASA or blood thinners. Lovenox okay for DVT prophx please call with neuro changes Patient seen by myself and Dr. Chamorro. Subjective: Continues to have pain limiting his mobility. Objective: Awake. Alert. PERRL. EOMI Facial expression symmetrical Muscle strength full at 09/24 - Physician Patient Seen by : [facility] Physical Exam - Vitals, I&O, Labs I and O 10/05/18 10/06/18 10/07/18 05:59 05:59 05:59 Intake Total 1800 Output Total 1800 800 300 Balance 0 -800 -300 Weight 86.94 kg 86.7 kg Intake: Oral (ml) 1800 Output: Urine (ml) 1800 800 300 Urinal 1800 800 300 Other: Intake Quantity Yes Sufficient Number of Voids Urinal 1 1 Number of Stools Urinal 1 Vital Signs Temp Pulse Resp BP Pulse Ox 36.8 C 71 17 157/95 H 93 10/06/18 07:42 10/06/18 07:42 10/06/18 07:42 10/06/18 07:42 10/06/18 07:42 ICD10 Worksheet Patient Problems: Problems Problem Status Onset Bulging lumbar disc Acute Pain management Acute CAD in [place] artery Acute Elevated troponin Acute Lightheadedness Acute S/P CABG x 3 Acute S/P ablation of atrial fibrillation Acute S/P mitral valve repair Acute S/P placement of cardiac pacemaker Acute S/P tricuspid valve repair Acute Severe mitral regurgitation Acute Severe tricuspid regurgitation Acute Chronic anticoagulation Chronic Chronic atrial fibrillation Chronic
[2018-10-06] MEDS: GABAPENTIN 300 MG CAP PO SCH ×2 (09:55→16:05)
[2018-10-06] MEDS: ATORVASTATIN CALCIUM 20 MG TAB PO SCH (09:55)
[2018-10-06] MEDS: METOPROLOL TARTRATE 25 MG TAB PO SCH ×2 (09:56→20:56)
[2018-10-06] MEDS: LIDOCAINE 4%/MENTHOL 1% PATCH TD SCH (09:57)
[2018-10-06] MEDS: traMADol 50 MG TAB PO PRN (16:04)
[2018-10-06] MEDS: PANTOPRAZOLE SODIUM 40 MG TAB PO SCH (20:57)
[2018-10-06] MEDS: PHENobarbital 30 MG TAB PO SCH (20:57)
[2018-10-06] MEDS ORDERED: GABAPENTIN 300 MG CAP PO SCH (21:00)
[2018-10-07] MEDS: ACETAMINOPHEN 500 MG TAB PO SCH ×3 (01:11→18:43)
[2018-10-07] MEDS: traMADol 50 MG TAB PO PRN (01:12)
[2018-10-07] MEDS: oxyCODONE IR 5 MG TAB PO PRN ×3 (05:36→20:16)
--- NOTE | 2018-10-07 08:18 | SOAPPROG ---
[facility] Progress Note Assessment/Plan: Assessment/Plan: Assessment: 78 yo M with right leg radicular symptoms likely from L4/5 DJD/disc herniation Plan: neuro: stable s/p L4/5 PRADEEP with pain reduction to 2/10 over night but pain has returned PT/OT Plan for surgery with Dr. Chamorro on Tuesday or Tuesday with a L4/5 microdiscectomy NO ASA or blood thinners. Lovenox okay for DVT prophx please call with neuro changes Subjective: Continues to have pain limiting his mobility. PRADEEP did not help Objective: Awake. Alert. PERRL. EOMI Facial expression symmetrical Muscle strength full at 5/5 but limited in right leg due to pain Objective: Vital Signs Temp Pulse Resp BP Pulse Ox 36.9 C 73 16 132/88 H 94 10/07/18 07:50 10/07/18 07:50 10/07/18 07:50 10/07/18 07:50 10/07/18 07:50 10/06/18 10/07/18 10/08/18 05:59 05:59 05:59 Intake Total 940 Output Total 800 750 Balance -800 190 PT 11.9 SEC (12.0-15.0) L 10/03/18 13:30 INR 0.91 (0.83-1.16) 10/03/18 13:30 ICD10 Worksheet Patient Problems: Problems Problem Status Onset Bulging lumbar disc Acute Pain management Acute CAD in [place] artery Acute Elevated troponin Acute Lightheadedness Acute S/P CABG x 3 Acute S/P ablation of atrial fibrillation Acute S/P mitral valve repair Acute S/P placement of cardiac pacemaker Acute S/P tricuspid valve repair Acute Severe mitral regurgitation Acute Severe tricuspid regurgitation Acute Chronic anticoagulation Chronic Chronic atrial fibrillation Chronic
[2018-10-07] MEDS ORDERED: methylPREDNISolone 4 MG TAB PO ONE (09:00)
[2018-10-07] MEDS: METOPROLOL TARTRATE 25 MG TAB PO SCH ×2 (09:20→20:11)
[2018-10-07] MEDS: ATORVASTATIN CALCIUM 20 MG TAB PO SCH (09:20)
[2018-10-07] MEDS: GABAPENTIN 300 MG CAP PO SCH ×3 (09:21→20:13)
[2018-10-07] MEDS: POTASSIUM CL 10 MEQ TAB PO SCH (09:21)
[2018-10-07] MEDS: LIDOCAINE 4%/MENTHOL 1% PATCH TD SCH (09:22)
--- NOTE | 2018-10-07 10:01 | ASMTCMCOM ---
CM Note CM Note Notes: Pt to have surgery Tuesday or Tuesday with Dr. Chamorro. For now PT rec home/outpatient, OT following and state rec is TBD in 10/06/18 note. Pt may be indepedenent, CM to follow pt progress. Date Signed: 10/07/2018 10:00 AM Electronically Signed By:MONA Matthews
[2018-10-07] MEDS ORDERED: LACTULOSE 20 GM/30 ML UDCUP PO PRN (14:10)
[2018-10-07] MEDS ORDERED: MAGNESIUM HYDROXIDE 30 ML UDCUP PO PRN (14:10)
[2018-10-07] MEDS ORDERED: POLYETHYLENE GLYCOL 3350 17 GM PKT PO PRN (14:10)
[2018-10-07] MEDS ORDERED: BISACODYL 10 MG SUPP PR PRN (14:10)
--- NOTE | 2018-10-07 14:22 | HOSPPROG ---
Hospitalist Progress Note Assessment/Plan: #L4-5 disc herniation: still having significant pain -s/p nerve block yesterday -Pedro Pablo plans for microdiskectomy Tuesday or -Medrol pack, increase Gabapentin -increased fall-risk, PT #CAD: CABG 2014 -BB, statin. Hold ASA #Compensated diastolic HF: Lasix, BB #A fib: pacer, s/p MAZE #Diet: regular #DVT ppx: Lovenox Inpatient admission for pain control, PT Subjective: pain 8/10 today, but he thinks overexerted self with shower this morn Objective: Vital Signs Temp Pulse Resp BP Pulse Ox 36.9 C 73 16 132/88 H 94 10/07/18 07:50 10/07/18 09:20 10/07/18 07:50 10/07/18 09:20 10/07/18 07:50 10/06/18 10/07/18 10/08/18 05:59 05:59 05:59 Intake Total 940 Output Total 800 750 Balance -800 190 PT 11.9 SEC (12.0-15.0) L 10/03/18 13:30 INR 0.91 (0.83-1.16) 10/03/18 13:30 - Time Spent With Patient Time Spent with Patient: greater than 35 minutes Time Spent with Patient: Greater than 35 minutes spent on this patients care, greater than 50% of time spent counseling, educating, and coordinating care regarding the above mentioned plan. - Physical Exam Constitutional: no apparent distress Eyes: PERRL Ears, Nose, Mouth, Throat: moist mucous membranes Cardiovascular: regular rate and rhythym Respiratory: no respiratory distress Gastrointestinal: normoactive bowel sounds Genitourinary: no bladder fullness, No [place] in urethra Musculoskeletal: other (decreased ROM right leg due to pain. ) Neurologic: AAOx3, CN II-XII Intact Psychiatric: interacting appropriately ICD10 Worksheet Patient Problems: Problems Problem Status Onset Bulging lumbar disc Acute Pain management Acute CAD in [place] artery Acute Elevated troponin Acute Lightheadedness Acute S/P CABG x 3 Acute S/P ablation of atrial fibrillation Acute S/P mitral valve repair Acute S/P placement of cardiac pacemaker Acute S/P tricuspid valve repair Acute Severe mitral regurgitation Acute Severe tricuspid regurgitation Acute Chronic anticoagulation Chronic Chronic atrial fibrillation Chronic
[2018-10-07] MEDS: ENOXAPARIN 40 MG/0.4 ML SYR SC SCH (16:24)
[2018-10-07] MEDS: PANTOPRAZOLE SODIUM 40 MG TAB PO SCH (20:12)
[2018-10-07] MEDS: PHENobarbital 30 MG TAB PO SCH (20:13)
[2018-10-07] MEDS: SENNOSIDES/DOCUSATE SODIUM TAB PO SCH (20:15)
[2018-10-07] MEDS: PATCH REMOVAL 1 EA PATCH TD SCH (20:16)
[2018-10-08] MEDS: ACETAMINOPHEN 500 MG TAB PO SCH ×3 (01:42→17:49)
[2018-10-08] MEDS: oxyCODONE IR 5 MG TAB PO PRN ×4 (02:46→21:38)
[2018-10-08] MEDS ORDERED: methylPREDNISolone 4 MG TAB PO ONE (09:00)
[2018-10-08] MEDS: SENNOSIDES/DOCUSATE SODIUM TAB PO SCH ×2 (10:39→21:38)
[2018-10-08] MEDS: GABAPENTIN 300 MG CAP PO SCH ×3 (10:39→21:36)
[2018-10-08] MEDS: METOPROLOL TARTRATE 25 MG TAB PO SCH ×2 (10:40→21:36)
[2018-10-08] MEDS: ATORVASTATIN CALCIUM 20 MG TAB PO SCH (10:40)
[2018-10-08] MEDS: ENOXAPARIN 40 MG/0.4 ML SYR SC SCH (10:41)
[2018-10-08] MEDS: LIDOCAINE 4%/MENTHOL 1% PATCH TD SCH (10:42)
--- NOTE | 2018-10-08 13:24 | HOSPPROG ---
Hospitalist Progress Note Assessment/Plan: #L4-5 disc herniation: still having significant pain -s/p nerve block yesterday -Pedro Pablo plans for microdiskectomy Tuesday or -Medrol pack -Gabapentin at 900mg TID without issue -increased fall-risk, PT #CAD: CABG 2014 -BB, statin. Hold ASA #Compensated diastolic HF: Lasix, BB #A fib: pacer, s/p MAZE #Diet: regular #DVT ppx: Lovenox Inpatient admission for pain control, PT Subjective: Slept overnight Objective: Vital Signs Temp Pulse Resp BP Pulse Ox 36.9 C 75 17 141/96 H 96 10/08/18 07:27 10/08/18 07:27 10/08/18 07:27 10/08/18 07:27 10/08/18 07:27 10/07/18 10/08/18 10/09/18 05:59 05:59 05:59 Intake Total 940 1550 350 Output Total 750 1200 950 Balance 190 350 -600 PT 11.9 SEC (12.0-15.0) L 10/03/18 13:30 INR 0.91 (0.83-1.16) 10/03/18 13:30 - Time Spent With Patient Time Spent with Patient: greater than 25 minutes Time Spent with Patient: Greater than 25 minutes spent on this patients care, greater than 50% of time spent counseling, educating, and coordinating care regarding the above mentioned plan. - Physical Exam Constitutional: no apparent distress Eyes: PERRL Ears, Nose, Mouth, Throat: moist mucous membranes Cardiovascular: regular rate and rhythym Respiratory: no respiratory distress Gastrointestinal: normoactive bowel sounds Genitourinary: no bladder fullness Skin: warm Musculoskeletal: full muscle strength Neurologic: other (+ right straight leg test) Psychiatric: interacting appropriately, not encephalopathic ICD10 Worksheet Patient Problems: Problems Problem Status Onset Bulging lumbar disc Acute Pain management Acute CAD in [place] artery Acute Elevated troponin Acute Lightheadedness Acute S/P CABG x 3 Acute S/P ablation of atrial fibrillation Acute S/P mitral valve repair Acute S/P placement of cardiac pacemaker Acute S/P tricuspid valve repair Acute Severe mitral regurgitation Acute Severe tricuspid regurgitation Acute Chronic anticoagulation Chronic Chronic atrial fibrillation Chronic
[2018-10-08] MEDS: PANTOPRAZOLE SODIUM 40 MG TAB PO SCH (21:38)
[2018-10-08] MEDS: PHENobarbital 30 MG TAB PO SCH (21:38)
[2018-10-08] MEDS: PATCH REMOVAL 1 EA PATCH TD SCH (21:38)
[2018-10-09] MEDS: ACETAMINOPHEN 500 MG TAB PO SCH ×4 (00:01→23:51)
[2018-10-09] MEDS: oxyCODONE IR 5 MG TAB PO PRN (06:34)
--- NOTE | 2018-10-09 07:24 | NEUSURGPN ---
Assessment/Plan: Assessment/Plan: Assessment: 78 yo M with right leg radicular symptoms likely from L4/5 DJD/disc herniation Plan: neuro: stable s/p L4/5 PRADEEP with inadequate pain reduction over the weekend - patient is still having issues with therapies and ambulating/weakness/pain Plan for surgery with me today at 11 am: right L4/5 hemilaminotomy/lateral recess decompression/microdiscectomy consents signed and site marked. all questions answered and risks and benefits of surgery reviewed with the patient (include but not limited to CSF leak, , stroke, pneumonia, no improvement in symptoms, worsening symptoms, paralysis, infection, bleeding, need for additional surgery, etc). he is willing to proceed with surgery. hold Lovenox and made NPO this morning please call with neuro changes time spent with patient in direct patient care and face to face > 35 min Subjective: Subjective: Continues to have pain limiting his mobility. PRADEEP did not help Objective: Objective: Awake. Alert. PERRL. EOMI Facial expression symmetrical Muscle strength full at 5/5 but limited in right leg due to pain Urinary Catheter in Place: No Neurosurgery Physical Exam - Vitals, I&O, Labs I and O 10/08/18 10/09/18 10/10/18 05:59 05:59 05:59 Intake Total 1550 2100 Output Total 1200 2350 Balance 350 -250 Weight 86.3 kg Intake: Oral (ml) 1550 2100 Output: Urine (ml) 1200 2350 Urinal 1200 2350 Other: Intake Quantity Yes Sufficient Number of Voids Toilet 2 Urinal 1 1 Number of Stools Toilet 1 1 Vital Signs Temp Pulse Resp BP Pulse Ox 36.7 C 72 18 138/88 H 94 10/08/18 22:38 10/08/18 22:38 10/08/18 22:38 10/08/18 22:38 10/08/18 22:38 Laboratory Results 10/08/18 13:40 ICD10 Worksheet Patient Problems: Problems Problem Status Onset Bulging lumbar disc Acute Pain management Acute CAD in [place] artery Acute Elevated troponin Acute Lightheadedness Acute S/P CABG x 3 Acute S/P ablation of atrial fibrillation Acute S/P mitral valve repair Acute S/P placement of cardiac pacemaker Acute S/P tricuspid valve repair Acute Severe mitral regurgitation Acute Severe tricuspid regurgitation Acute Chronic anticoagulation Chronic Chronic atrial fibrillation Chronic
--- NOTE | 2018-10-09 09:41 | HOSPPROG ---
Hospitalist Progress Note Assessment/Plan: #L4-5 disc herniation: still having significant pain -s/p nerve block yesterday -Pedro Pablo plans for microdiskectomy today -Medrol pack -Gabapentin at 900mg TID without issue -increased fall-risk, PT #Mild hyperkalemia: hold home K supplementation #CAD: CABG 2014 -BB, statin. Hold ASA #Compensated diastolic HF: Lasix, BB #A fib: pacer, s/p MAZE #Diet: regular #DVT ppx: Lovenox Inpatient admission for pain control, PT Subjective: pain in back still 7.5 Objective: Vital Signs Temp Pulse Resp BP Pulse Ox 37.0 C 71 16 156/94 H 98 10/09/18 07:30 10/09/18 07:30 10/09/18 07:30 10/09/18 07:30 10/09/18 07:30 Laboratory Results 10/08/18 13:40 10/08/18 10/09/18 10/10/18 05:59 05:59 05:59 Intake Total 1550 2100 Output Total 1200 2350 Balance 350 -250 PT 11.9 SEC (12.0-15.0) L 10/03/18 13:30 INR 0.91 (0.83-1.16) 10/03/18 13:30 - Time Spent With Patient Time Spent with Patient: greater than 35 minutes Time Spent with Patient: Greater than 35 minutes spent on this patients care, greater than 50% of time spent counseling, educating, and coordinating care regarding the above mentioned plan. - Physical Exam Constitutional: no apparent distress Eyes: PERRL Ears, Nose, Mouth, Throat: moist mucous membranes Cardiovascular: regular rate and rhythym Respiratory: no respiratory distress Gastrointestinal: normoactive bowel sounds Genitourinary: no bladder fullness Skin: warm Musculoskeletal: full muscle strength Neurologic: AAOx3, CN II-XII Intact Psychiatric: interacting appropriately ICD10 Worksheet Patient Problems: Problems Problem Status Onset Bulging lumbar disc Acute Pain management Acute CAD in [place] artery Acute Elevated troponin Acute Lightheadedness Acute S/P CABG x 3 Acute S/P ablation of atrial fibrillation Acute S/P mitral valve repair Acute S/P placement of cardiac pacemaker Acute S/P tricuspid valve repair Acute Severe mitral regurgitation Acute Severe tricuspid regurgitation Acute Chronic anticoagulation Chronic Chronic atrial fibrillation Chronic
[2018-10-09] MEDS ORDERED: THROMBIN (BOVINE) 20,000 UNIT VIAL TP ONE (10:17)
[2018-10-09] MEDS ORDERED: CHLORHEXIDINE GLUC HIBICLENS 118 ML BTL TP ONE (10:17)
[2018-10-09] MEDS ORDERED: BUPIVACAINE/EPI 0.25% 30 ML SDV ONE (10:20)
[2018-10-09] MEDS ORDERED: BACITRACIN 50,000 UNITS/10 ML SYR IRR ONE (10:20)
[2018-10-09] MEDS: GABAPENTIN 300 MG CAP PO SCH ×3 (10:41→21:46)
[2018-10-09] MEDS: METOPROLOL TARTRATE 25 MG TAB PO SCH ×2 (10:42→21:42)
[2018-10-09] MEDS: ATORVASTATIN CALCIUM 20 MG TAB PO SCH (10:42)
--- NOTE | 2018-10-09 10:46 | PDANEPAE ---
ANE History of Present Illness L4-5 discectomy ANE Past Medical History - Cardiovascular History Hx Hypertension: Yes Hx Arrhythmias: No Hx Chest Pain: No Hx Coronary Artery / Peripheral Vascular Disease: Yes Hx CHF / Valvular Disease: Yes Hx Palpitations: No Cardiovascular History Comment: CAD, s/p CABG, HPL,RBBB. hx of Atrial fibrillation - MAZE resolved. RAFAEL LOWER EXT EDEMA,. Pacemaker placed in 2014 - Pulmonary History Hx COPD: No Hx Asthma/Reactive Airway Disease: No Hx Recent Upper Respiratory Infection: No Hx Oxygen in Use at Home: No Hx Sleep Apnea: No Pulmonary History Comment: Lung nodule - biopsied x2 benign - Neurologic History Hx Cerebrovascular Accident: No Hx Seizures: Yes Hx Dementia: No Neurologic History Comment: PETIT MAL SYNCOPAL - Endocrine History Hx Diabetes: No Hypothyroid: No Hyperthyroid: No Obesity: mild - Renal History Hx Renal Disorders: Yes Renal History Comment: RAFAEL STONES IN KIDNEY - not causing issues - Liver History Hx Hepatic Disorders: No - Neurological & Psychiatric Hx Hx Neurological and Psychiatric Disorders: Yes Neurological / Psychiatric History Comment: MIGRAINE ABOUT EVERY 2-3 WEEKS - Cancer History Hx Cancer: Yes Cancer History Comment: Prostate Dx'd 2005 - Congenital Disorder History Hx Congenital Disorders: No - GI History GERD: no Hx Gastrointestinal Disorders: Yes Gastrointestinal History Comment: ULCER -resolved - Other Health History Other Health History: DVT RT LOWER LEG 2011. Hx of right sided hydrocele. currently with hyperkalemia, asymptomatic - Chronic Pain History Chronic Pain: Yes - Surgical History Prior Surgeries: Prostate BX - and cyberknife. RT HYDROCOCELECTOMY 10/2012. COLONOSCOPY. RAFAEL BLEPHeroplasty. TONSILLECTOMY. 12/2014 CABG,MAZE, and AVR ANE Review of Systems Review of Systems: - Exercise capacity Exercise capacity: >=4 METS (until onset of pain.) - Pacemaker Pacemaker Sole Seamer: [employer] Pacemaker Mode: DDDR Date Pacemaker Last Checked: 06/2018 ANE Patient History - Allergies Allergies/Adverse Reactions: sulfamethoxazole [From Bactrim] Allergy (Mild, Verified 10/03/18 12:38) shakes trimethoprim [From Bactrim] Allergy (Verified 10/03/18 12:38) shakes - Home Medications Home Medications: Acetaminophen with Codeine [Acetaminophen-Cod #3 Tablet] 1 each PO DAILY PRN 09/04 [Last Taken 10/03/18] Atorvastatin Calcium [Lipitor 20 mg (*)] 20 mg PO DAILY 12/24/14 [Last Taken ] Herbals/Supplements -Info Only 1 ea PO DAILY 12/24/14 [Last Taken 10/03/18] Multivitamins [Multivitamin (*)] 1 each PO DAILY 12/24/14 [Last Taken 10/03/18] PHENobarbital [PHENOBARBITAL] 32.4 mg PO HS 12/24/14 [Last Taken 10/02/18] Potassium Chloride [Klor-Con 10] 10 meq PO EVERY OTHER DAY 12/24/14 [Last Taken 09/11/18] SUMAtriptan [Imitrex 25 MG (*)] 25 mg PO Q2H PRN 12/24/14 [Last Taken 12/13/14] Gabapentin 600 mg PO BID@04/22/16 [Last Taken 10/02/18] Naproxen Sod/Diphenhydramine [Aleve Pm Caplet] 2 each PO HS PRN 04/22/16 [Last Taken 05/15/18] Aspirin EC [Aspirin EC 81 mg (*)] 81 mg PO DAILY 10/03/18 [Last Taken 10/03/18] Furosemide [Lasix] 40 mg PO BID@,10/03/18 [Last Taken 10/03/18 06:00] Pantoprazole Sodium [Protonix 40mg (*)] 40 mg PO HS 10/03/18 [Last Taken ] methylPREDNISolone [Methylprednisolone] 4 mg PO AD 10/03/18 [Last Taken 10/03/18 ] - Anes Hx Anes Hx: no prior problems - Smoking Hx Smoking Status: Former smoker (stopped in 1978) - Alcohol Use Alcohol Use: None - Family Anes Hx Family Anes Hx: none Family Hx Anesthesia Complications: none ANE Labs/Vital Signs - Labs Result Diagrams: 10/03/18 13:30 10/09/18 10:25 - Vital Signs Blood Pressure: 156/94 Heart Rate: 71 Respiratory Rate: 16 O2 Sat (%): 98 Height: 190.5 cm Weight: 87 kg ANE Anesthesia Plan Anesthesia Plan: general endotracheal anesthesia
[2018-10-09] MEDS: POTASSIUM CL 10 MEQ TAB PO SCH (11:01)
[2018-10-09] MEDS ORDERED: NS 1,000 ML IV ONE ×2 (11:01→11:30)
[2018-10-09] MEDS: SENNOSIDES/DOCUSATE SODIUM TAB PO SCH ×2 (11:02→21:46)
[2018-10-09] MEDS ORDERED: ceFAZolin 2 GM/DEXTROSE 100 ML IV ONE (11:30)
[2018-10-09] MEDS ORDERED: CEFAZOLIN 2 GM/DEXTROSE/100 ML BAG IV ONE (11:34)
[2018-10-09] MEDS ORDERED: PHENYLEPHRINE HCL 100 MCG/ML SYR ONE (12:01)
[2018-10-09] MEDS ORDERED: PHENYLEPHRINE 10 MG/ML SDV ONE (12:23)
[2018-10-09] MEDS ORDERED: SUGAMMADEX SODIUM 200 MG/2 ML VIAL IVP ONE (12:47)
[2018-10-09] MEDS ORDERED: ONDANSETRON 4 MG/2 ML VIAL ONE (12:47)
[2018-10-09] MEDS ORDERED: KETOROLAC 30 MG/1 ML SDV ONE (13:01)
[2018-10-09] MEDS ORDERED: HYDROmorphONE/DILAUDID 1 MG/ML INJ IVP PRN (13:05)
[2018-10-09] MEDS ORDERED: fentaNYL 100 MCG/2 ML INJ IVP PRN (13:05)
[2018-10-09] MEDS ORDERED: NALOXONE HCL 0.4 MG/ML INJ IVP PRN (13:05)
[2018-10-09] MEDS ORDERED: KETAMINE 200 MG/20 ML VIAL ONE (13:33)
[2018-10-09] MEDS ORDERED: fentaNYL 250 MCG/5 ML INJ ONE ×2 (13:33→14:15)
--- NOTE | 2018-10-09 13:33 | POSTANESTH ---
Post Anesthetic Evaluation Cardiovascular Status: Similar to Pre-Op Cond Respiratory Status: Normal, Stable Level of Consciousness/Mental Status: Can Participate in Eval Pain Control: Adequate, Prn Tx Ordered Nausea/Vomiting Control: Adequate, Prn Tx Ordered Complications Possibly Related to Anesthesia: None Noted
--- NOTE | 2018-10-09 13:42 | POSTOPPROG ---
Post Op Note Date of Operation: 10/09/18 Surgeon: Cyril Chamorro Rug Receiving Clerk: Helen Brewer NP Anesthesia: GET(General Endotracheal) Pre-op Diagnosis: L4-5 HNP Procedure: Right L4-5 hemilaminotomy and ARISTEO Inf/Abcess present in the surg proc area at time of surgery?: No Depth: Deep Incisional (Fascial) EBL: Minimal Total fluids administered: see anesthesia Complications: none Date of Surgery: 10/09/18 Post Op Day: 0 Assessment/Plan: Assessment: 78 yr old male s/p Right L4-5 hemilaminotomy and ARISTEO Plan: -Admit ortho/neuro -Pain management -PT/OT -Please call with questions/concerns Subjective: waking up in pacu Objective: AxO x4 MAEx4 5/5 BLE Sensation intact to light touch BLE Dressing CDI Appropriate Neuro Check Frequency Ordered: Yes
--- NOTE | 2018-10-09 15:19 | GOP ---
[f rep st] OPERATIVE REPORT DATE OF OPERATION: 10/09/2018 SURGEON: Cyril Chamorro MD SLOT EDITOR: Helen Brewer NP. ANESTHESIA: General. PREOPERATIVE DIAGNOSIS: 1. Right-sided L4-L5 lateral recess stenosis, moderate central stenosis and herniated nucleus pulposus. 2. Right lower extremity radiculopathy with weakness. 3. Treatment refractory to nonoperative intervention. POSTOPERATIVE DIAGNOSIS: 1. Right-sided L4-L5 lateral recess stenosis, moderate central stenosis and herniated nucleus pulposus. 2. Right lower extremity radiculopathy with weakness. 3. Treatment refractory to nonoperative intervention. PROCEDURE PERFORMED: 1. Right L4-L5 hemilaminotomy with medial facetectomy, lateral recess decompression and microdiskectomy with nerve root decompression. 2. Use of intraoperative fluoroscopy, less than 1 hour physician time. 3. Use of neuromonitoring. 4. Use of the operating microscope. FINDINGS: per imaging SPECIMENS: None. ESTIMATED BLOOD LOSS: 10 mL. INDICATIONS: The patient is a very pleasant 78-year-old gentleman with a known history of right lower extremity radiculopathy for which he has undergone outpatient spinal injections. The patient presented to the emergency department with ongoing and severe pain. Imaging studies demonstrated a right- sided L4-L5 herniated nucleus pulposus with lateral recess and foraminal stenosis. The patient failed further nonoperative attempts including medications and injections. After discussion of risks, benefits and alternatives, after failing nonoperative intervention, we decided to proceed forth with surgery as described above. DESCRIPTION OF PROCEDURE: The patient was brought to the operative theater and underwent general anesthesia without complication. He had Venodynes, GISELA hose and the appropriate lines placed by Anesthesia. He was flipped prone onto the Jv frame. All bony processes were inspected and padded. The lower lumbar region was prepped and draped in the usual sterile surgical fashion. Time-out was completed per protocol and the patient received antibiotics within 1 hour of incision. Using lateral fluoroscopy and spinal needle, we picked our entry point to the L4 -5 level. This was marked in the midline. The incision was infiltrated with Marcaine with epinephrine. The incision was taken down initially with the scalpel blade. Using the monopolar, the incision was taken down the midline through the lumbodorsal fascia to the right side of the L4-L5 interlaminar space. Deep retractors were placed to maintain exposure. We confirmed our level using lateral fluoroscopy. The microscope was brought into the field to assist with microscopic dissection and to maintain illumination and magnification. Using a combination of the kerry tip on the drill and Kerrison punches, we completed a right-sided L4-5 hemilaminotomy with a medial facetectomy with a lateral recess decompression. We then retracted the thecal sac medially and incised the anulus of the disk and pulled out several free fragments of disk material. We then reached around with angled nerve hook of the ventral aspect of the thecal sac and pull out 4 or 5 more small free pieces of disk. We continued with our lateral recess decompression and felt that the nerve was well decompressed. We obtained hemostasis with the bipolar. The wound was irrigated copiously with bacitracin irrigation. We then closed the wound in multiple layers including Vicryl sutures in the deep layers and Dermabond for the skin. The patient's wounds were dressed sterilely. He was then flipped supine onto the transfer cart where he was awakened, extubated and taken to the recovery room in stable condition. There were no complications and no noted changes on neuromonitoring throughout the procedure. COMPLICATIONS: None. /[id number]/MODL MTDD
--- NOTE | 2018-10-09 16:23 | ASMTLACE ---
LACE Length of stay for Answers: 7-13 days current admission Acuity / Level of Answers: Yes Care: Did the patient have an inpatient admission? Comorbidities - select Answers: Congestive heart failure all that apply Coronary Artery Disease Opioid dependence / Chronic pain Other Notes: AFib; HTN; HLD # of Emergency department Answers: 1-2 visits in the last 6 months Score: 18 Date Signed: 10/09/2018 03:38 PM Electronically Signed By:Linda Escobar
[2018-10-09] MEDS: traMADol 50 MG TAB PO PRN (20:06)
[2018-10-09] MEDS: PANTOPRAZOLE SODIUM 40 MG TAB PO SCH (21:46)
[2018-10-09] MEDS: PHENobarbital 30 MG TAB PO SCH (21:46)
[2018-10-10] MEDS: traMADol 50 MG TAB PO PRN ×3 (05:54→23:45)
[2018-10-10] MEDS ORDERED: SODIUM ZIRCONIUM CYCLOSILICATE 10 GM PACKET PO ONE (07:12)
--- NOTE | 2018-10-10 08:10 | NEUSURGPN ---
Date of Surgery: 10/09/18 Post Op Day: 1 Assessment/Plan: Assessment: 78 yr old male s/p Right L4-5 hemilaminotomy and ARISTEO POD#1 Plan: -Patient doing well following surgery, reports improvement in leg pain. -Ok to discharge from neurosurgery standpoint, will have patient follow up in office in 2-3 weeks -PT/OT -Discussed patient with Dr Chamorro -Please call with questions/concerns Subjective: Doing well, improved leg pain Objective: AxoX4 MAEx4 5/5 BLE sensation intact to light touch BLE Dressing small 1cm area of dried SA Neuro Check Frequency: per routine Urinary Catheter in Place: No - Physician Discussed Patient with Dr.: Chamorro Neurosurgery Physical Exam - Vitals, I&O, Labs I and O 10/09/18 10/10/18 10/11/18 05:59 05:59 05:59 Intake Total 2100 1400 Output Total 2350 760 Balance -250 640 Weight 86.3 kg 87 kg 88.133 kg Intake: Oral (ml) 2100 850 IV Intake (ml) 550 Output: Urine (ml) 2350 750 Toilet 500 Urinal 2350 250 Estimated Blood Loss (ml) 10 Other: Intake Quantity Yes Sufficient Number of Voids Toilet 1 Urinal 1 1 Number of Stools Toilet 1 Bladder Scan Volume (ml) Toilet 332 Post Void Residual Scan Volume (ml) Toilet 0 Vital Signs Temp Pulse Resp BP Pulse Ox 37.1 C 72 16 136/83 H 95 10/10/18 04:00 10/10/18 04:00 10/10/18 04:00 10/10/18 04:00 10/10/18 04:00 Laboratory Results 10/10/18 04:39 ICD10 Worksheet Patient Problems: Problems Problem Status Onset Bulging lumbar disc Acute Pain management Acute CAD in [place] artery Acute Elevated troponin Acute Lightheadedness Acute S/P CABG x 3 Acute S/P ablation of atrial fibrillation Acute S/P mitral valve repair Acute S/P placement of cardiac pacemaker Acute S/P tricuspid valve repair Acute Severe mitral regurgitation Acute Severe tricuspid regurgitation Acute Chronic anticoagulation Chronic Chronic atrial fibrillation Chronic
--- NOTE | 2018-10-10 09:13 | HOSPPROG ---
Hospitalist Progress Note Assessment/Plan: DIAGNOSES: * Sciatica and back pain, L4-5 disc herniation status post microdiskectomy and facetectomy 10/09 * Hyperkalemia (suspect due to potassium supplement which he takes chronically but was off Lasix here) * Chronic diastolic congestive heart failure * CABG 2014 * Chronic paroxysmal atrial fibrillation status post Maze procedure and pacemaker PLANS: * A dose of lokelma was given this morning * Repeat potassium and renal function at noon today and follow closely * Increase activity as able * For the moment will continue off potassium and Lasix, but likely resume Lasix tomorrow but could resume sooner if we are having trouble with potassium SUBJECTIVE: Overall feels well Some neuropathic pain in leg remains but otherwise comfortable OBJECTIVE Vitals reviewed: All stable without fever Rotary Adjuster, my review: Exam: alert oriented skin warm dry color ok resps not labored lungs clear BSs heart regular abd soft nondistended nontender, bowel sounds present limbs warm, no edema iv site ok Lab data: Potassium up to 6.3 Creatinine pending Objective: Vital Signs Temp Pulse Resp BP Pulse Ox 37.1 C 72 17 143/86 H 96 10/10/18 08:00 10/10/18 08:00 10/10/18 08:00 10/10/18 08:00 10/10/18 08:00 Laboratory Results 10/10/18 04:39 10/09/18 10/10/18 10/11/18 06:59 06:59 06:59 Intake Total 2100 1400 Output Total 1950 760 Balance 150 640 PT 11.9 SEC (12.0-15.0) L 10/03/18 13:30 INR 0.91 (0.83-1.16) 10/03/18 13:30 ICD10 Worksheet Patient Problems: Problems Problem Status Onset Bulging lumbar disc Acute Pain management Acute CAD in [place] artery Acute Elevated troponin Acute Lightheadedness Acute S/P CABG x 3 Acute S/P ablation of atrial fibrillation Acute S/P mitral valve repair Acute S/P placement of cardiac pacemaker Acute S/P tricuspid valve repair Acute Severe mitral regurgitation Acute Severe tricuspid regurgitation Acute Chronic anticoagulation Chronic Chronic atrial fibrillation Chronic
[2018-10-10] MEDS: METOPROLOL TARTRATE 25 MG TAB PO SCH ×2 (10:09→21:30)
[2018-10-10] MEDS: ACETAMINOPHEN 500 MG TAB PO SCH ×3 (10:11→23:46)
[2018-10-10] MEDS: ATORVASTATIN CALCIUM 20 MG TAB PO SCH (10:12)
[2018-10-10] MEDS: GABAPENTIN 300 MG CAP PO SCH ×3 (10:13→21:31)
[2018-10-10] MEDS: SENNOSIDES/DOCUSATE SODIUM TAB PO SCH ×2 (10:13→21:25)
[2018-10-10] MEDS: oxyCODONE IR 5 MG TAB PO PRN (13:52)
--- NOTE | 2018-10-10 15:38 | ASMTCMCOM ---
CM Note CM Note Notes: CM met w/ pt and his Lyudmila for dispo planning. Lyudmila reports that pt was independent and did not need a walker or a cane prior to this admission. Pt was not interested in going to a SNF. Pt is experiencing a lot of pain today. Lyudmila requested to see Dr. Chamorro or his PA/REGULATORY TECHNICIAN. CM communicated this w/ Edna, his nurse. Therapies are pending. Needs are TBD. CM to follow. Date Signed: 10/10/2018 03:38 PM Electronically Signed By:SARI Aguila
[2018-10-10] MEDS: METHOCARBAMOL 750 MG TAB PO SCH ×2 (16:54→22:31)
[2018-10-10] MEDS: PATCH REMOVAL 1 EA PATCH TD SCH (21:30)
[2018-10-10] MEDS: PANTOPRAZOLE SODIUM 40 MG TAB PO SCH (21:31)
[2018-10-10] MEDS: PHENobarbital 30 MG TAB PO SCH (21:31)
[2018-10-11] MEDS: oxyCODONE IR 5 MG TAB PO PRN ×3 (01:27→15:31)
[2018-10-11] MEDS: METHOCARBAMOL 750 MG TAB PO SCH ×2 (05:23→12:39)
[2018-10-11 07:45] VITALS: BP 145/85
[2018-10-11] MEDS: ACETAMINOPHEN 500 MG TAB PO SCH (08:14)
[2018-10-11] MEDS: GABAPENTIN 300 MG CAP PO SCH ×2 (08:15→15:31)
[2018-10-11] MEDS: METOPROLOL TARTRATE 25 MG TAB PO SCH (08:15)
[2018-10-11] MEDS: SENNOSIDES/DOCUSATE SODIUM TAB PO SCH (08:16)
[2018-10-11] MEDS: ENOXAPARIN 40 MG/0.4 ML SYR SC SCH (08:16)
[2018-10-11] MEDS: ATORVASTATIN CALCIUM 20 MG TAB PO SCH (08:16)
[2018-10-11] MEDS: LIDOCAINE 4%/MENTHOL 1% PATCH TD SCH (08:16)
--- NOTE | 2018-10-11 08:43 | SOAPPROG ---
[facility] Progress Note Assessment/Plan: Assessment: 78 yo M POD #2 right L4/5 microdiscectomy Plan: neuro: was doing well until patient had significant recurrence of right leg pain after doing therapy yesterday, pain partially improved. Will continue with PT/OT today if pain improves, then ok to discharge and follow up with Dr Chamorro in 2 weeks If pain worsens, then we can consider re-imaging but would suggest conservative care for now on neurontin please call with neuro changes discussed with Dr Chamorro 10/04/18 07:51 10/11/18 08:40 Subjective: continued surgical back pain, pain returned in right hamstring and calf yesterday, no left leg pain. Objective: Vital Signs Temp Pulse Resp BP Pulse Ox 37.1 C 73 17 145/85 H 93 10/11/18 07:45 10/11/18 07:45 10/11/18 07:45 10/11/18 07:45 10/11/18 07:45 Laboratory Results 10/10/18 12:22 10/10/18 12:22 10/10/18 10/11/18 10/12/18 05:59 05:59 05:59 Intake Total 1400 300 400 Output Total 760 950 350 Balance 640 -650 50 PT 11.9 SEC (12.0-15.0) L 10/03/18 13:30 INR 0.91 (0.83-1.16) 10/03/18 13:30 AAOx4, +FC PERRL, EOMI, no facial droop 5/5 + light touch C/D/I ICD10 Worksheet Patient Problems: Problems Problem Status Onset Bulging lumbar disc Acute Pain management Acute CAD in [place] artery Acute Elevated troponin Acute Lightheadedness Acute S/P CABG x 3 Acute S/P ablation of atrial fibrillation Acute S/P mitral valve repair Acute S/P placement of cardiac pacemaker Acute S/P tricuspid valve repair Acute Severe mitral regurgitation Acute Severe tricuspid regurgitation Acute Chronic anticoagulation Chronic Chronic atrial fibrillation Chronic
--- NOTE | 2018-10-11 12:35 | PDIAF ---
- Diagnosis Diagnosis: L4/5 disc herniation Code Status: Full Code - Medication Management Discharge Medications: electronically signed and located in the Home Medication List. - Orders Services needed: Home Care, Physical Therapy, Occupational Therapy Home Care Face to Face: I certify that this patient was under my care and that I had the required [id number] encounter meeting the encounter requirements on the discharge day. My findings support the fact that the patient is homebound as defined in Home Care Face to Face Continued: CMS Chapter 7 Medicare Benefits Manual 30.1.1 , The condition of the patient is such that there exists a normal inability to leave home and consequently, leaving home would require a considerable and taxing effort. Isolation Type: None Additional Instructions: Avoid bending and twisting Do not lift greater than 10 pounds Ok to shower on 10/13 avoid submerging incision for 2-3 weeks - Follow Up Care Current Providers and Referrals: Cyril Chamorro MD [Medical Doctor] - follow up in 2 weeks Joo Hager MD [Primary Care Provider] - As per Instructions Jorge Zepeda MD [Medical Doctor] -
--- NOTE | 2018-10-11 12:47 | PDDCSUM ---
Discharge Summary Discharge Summary: 78 yo male admitted with right sided leg pain and sciatica secondary to L4/5 disc herniation. NSG consulted. Right L4/5 microdiskectomy performed. The pt's pain is better. He has been cleared by therapies to return to home with HHC which has been set up. He will f/u with NSG in 2 weeks. He has a hx of CHF and has been off abx here at the hospital. Overall volume status is optimized. K was elevated and Lasix has been restarted on discharge but decreased from 40mg BID to 20mg daily. He will f/u with his PCP in 1-3 weeks. DX DIAGNOSES: * Sciatica and back pain, L4-5 disc herniation status post microdiskectomy and facetectomy 10/09 * Hyperkalemia, resolved * Chronic diastolic congestive heart failure * CABG 2014 * Chronic paroxysmal atrial fibrillation status post Maze procedure and pacemaker Exam: NAD AAOX3 RRR CTA B S/NT/ND NO LE EDEMA MEDS: SEE MED REC TOTAL TIME SPENT ON D/C IS 35 MINS
--- NOTE | 2018-10-11 13:44 | ASMTDCNOTE ---
Case Management Discharge Discharge Order Complete? Answers: Yes Patient to Obtain Answers: via Family Medications Transportation Arranged Answers: Family/Friends EMTALA Complete Answers: No Case Management Transport Answers: No Form Complete Faxed Final Orders Answers: Yes Agency/Facility Transfer Answers: Yes Report Printed & Faxed to Receiving Agency Family Notified Answers: Yes Discharge Comments Notes: Pts case discussed w/ Dr. Robins. Pt is being d/c'd today. PT has cleared pt to d/c home without any needs. CM met w/ pt and Lyudmila. Pt would feel much more comfortable w/ having HC. Referral sent to [facility]. [facility] is able to accept. CM confirmed pts address, phone number and PCP. CM available for changes. Plan: [facility]; PT, OT Date Signed: 10/11/2018 01:42 PM Electronically Signed By:SARI Aguila
--- NOTE | 2018-10-11 13:47 | ASDISCHSUM ---
Discharge Information Plan Status:Home with Home Health Medically Cleared to Leave: Discharge Date: D/C [facility]position[facility] Projected Discharge Date:10/11/2018 11:00 AM Transportation at D/C: Discharge Delay Reason: Follow-Up Date:10/11/2018 11:00 AM Discharge Slot: Final Diagnosis: Placement Information Referral Type:*Home Health Care Services Referral ID:[id number] Provider Name:[facility] Address 1:[address] Address 2: City:[place] Selection Factors: State:[place] Patient Contact Information Contact Name:DANDRE Relationship: Address:[address] City:[place] Alternate Phone: State/Zip Code:[place] [address] Email: Financial Information Financial Class:Medicare Advantage Plans Primary Plan Desc:[facility] NVMdurance Primary Plan Number:[id number] Secondary Plan Desc: Secondary Plan Number: Assessment Information LACE LACE Length of stay for Answers: 7-13 days current admission Acuity / Level of Answers: Yes Care: Did the patient have an inpatient admission? Comorbidities - select Answers: Congestive heart failure all that apply Coronary Artery Disease Opioid dependence / Chronic pain Other Notes: AFib; HTN; HLD # of Emergency department Answers: 1-2 visits in the last 6 months Score: 18 Date Signed: 10/09/2018 03:38 PM Electronically Signed By:Linda Escobar [facility] CM Progress Note CM Note CM Note Notes: Reviewed chart, pt admitted for back pain. He has been treated for L4/L5 issues in the past and has a hx of cardiac issues. Pt lives at home with his , may get injection as he has in the past, dc needs uncertain. DC Plan: TBD Date Signed: 10/04/2018 12:31 PM Electronically Signed By:Tami Swartz RN [facility] CM Progress Note CM Note CM Note Notes: Pt to have surgery Tuesday or Tuesday with Dr. Chamorro. For now PT rec home/outpatient, OT following and state rec is TBD in 10/06/18 note. Pt may be indepedenent, CM to follow pt progress. Date Signed: 10/07/2018 10:00 AM Electronically Signed By:MONA Matthews [facility] CM Progress Note CM Note CM Note Notes: CM met w/ pt and his Lyudmila for dispo planning. Lyudmila reports that pt was independent and did not need a walker or a cane prior to this admission. Pt was not interested in going to a SNF. Pt is experiencing a lot of pain today. Lyudmila requested to see Dr. Chamorro or his PA/IMMIGRATION SERVICES OFFICER. CM communicated this w/ Edna, his nurse. Therapies are pending. Needs are TBD. CM to follow. Date Signed: 10/10/2018 03:38 PM Electronically Signed By:SARI Aguila Case Management Discharge Plan Note Case Management Discharge Discharge Order Complete? Answers: Yes Patient to Obtain Answers: via Family Medications Transportation Arranged Answers: Family/Friends EMTALA Complete Answers: No Case Management Transport Answers: No Form Complete Faxed Final Orders Answers: Yes Agency/Facility Transfer Answers: Yes Report Printed & Faxed to Receiving Agency Family Notified Answers: Yes Discharge Comments Notes: Pts case discussed w/ Dr. Robins. Pt is being d/c'd today. PT has cleared pt to d/c home without any needs. CM met w/ pt and Lyudmila. Pt would feel much more comfortable w/ having HC. Referral sent to [facility]. [facility] is able to accept. CM confirmed pts address, phone number and PCP. CM available for changes. Plan: [facility]; PT, OT Date Signed: 10/11/2018 01:42 PM Electronically Signed By:SARI Aguila Intervention Information Intervention Type:*Incorrect Registration Date of Service:10/04/2018 10:35 AM Patient Type:Observation Staff Member:Harriett Waller Hours: Discipline: Severity: Comment: Intervention Type:*IM-Signed Date of Service:10/11/2018 01:38 PM Patient Type:Inpatient Staff Member:Linda Escobar Hours: Discipline: Severity: Comment:
== END 2018-10-11 16:13 | disposition home health service (06) | DRG 519 ==
LOC: OBSVTOIN 16:34 → F3N 17:26
PROVIDERS: ADMIT Hospitalist; ATTEND Hospitalist
PROC: B00B1ZZ Plain Radiography of Spinal Cord using Low Osmolar Contrast (ICD-10-PCS; 2018-10-03)
PROC: 3E0R3KZ Introduction of Other Diagnostic Substance into Spinal Canal, Percutaneous Approach (ICD-10-PCS; 2018-10-03)
PROC: 3E0T3BZ Introduction of Anesthetic Agent into Peripheral Nerves and Plexi, Percutaneous Approach (ICD-10-PCS; 2018-10-04)
PROC: 00NY0ZZ Release Lumbar Spinal Cord, Open Approach (ICD-10-PCS; principal; 2018-10-09 11:30)
PROC: 4A1004G Monitoring of Central Nervous Electrical Activity, Intraoperative, Open Approach (ICD-10-PCS; principal; 2018-10-09 11:30)
PROC: 01NB0ZZ Release Lumbar Nerve, Open Approach (ICD-10-PCS; principal; 2018-10-09 11:30)
DX: M51.26 Other intervertebral disc displacement, lumbar region (principal); I11.0 Hypertensive heart disease with heart failure; I50.32 Chronic diastolic (congestive) heart failure; M48.061 Spinal stenosis, lumbar region without neurogenic claudication; E87.5 Hyperkalemia; I48.2 Chronic atrial fibrillation; E78.5 Hyperlipidemia, unspecified; I25.10 Atherosclerotic heart disease of native coronary artery without angina pectoris; M51.16 Intervertebral disc disorders with radiculopathy, lumbar region; Z95.1 Presence of aortocoronary bypass graft; Z95.0 Presence of cardiac pacemaker; Z85.46 Personal history of malignant neoplasm of prostate; Z87.891 Personal history of nicotine dependence
CPT/HCPCS: 82435-PO; 82565-PO; 82947-PO; 84132-PO; 84295-PO; 84520-PO; 85014-ER; 96374; 97116-GP; 97161-GP; 97164-GP; 97166-GO; 97168-GO; 97530-GP; 97535-GO; J0690; J1170; J1650; J1885; J2250; J2310; J2370; J2405; J3010; J3301; Q9966; Q9967

== ENCOUNTER 2018-10-19 11:00 | Day surgery (SDC) | payer OTHER ==
[2018-10-19] MEDS ORDERED: TRIAMCINOLONE ACETONIDE 200 MG/5 ML MDV IM ONE (11:06)
[2018-10-19] MEDS ORDERED: IOPAMIDOL (ISOVUE-M 300) 15 ML VIAL ONE (11:06)
[2018-10-19] MEDS ORDERED: LIDOCAINE 1% 5 ML SDV ONE (11:06)
== END 2018-10-19 13:46 | disposition home or self-care (01) ==
LOC: FIMAGING 11:00
PROVIDERS: ATTEND Radiology Diagnostic Radiology
PROC: BR191ZZ Fluoroscopy of Lumbar Spine using Low Osmolar Contrast (ICD-10-PCS; principal; 2018-10-19)
PROC: 3E0S33Z Introduction of Anti-inflammatory into Epidural Space, Percutaneous Approach (ICD-10-PCS; principal; 2018-10-19)
PROC: 3E0S3BZ Introduction of Anesthetic Agent into Epidural Space, Percutaneous Approach (ICD-10-PCS; principal; 2018-10-19)
DX: M51.36 Other intervertebral disc degeneration, lumbar region (principal); M54.16 Radiculopathy, lumbar region
CPT/HCPCS: J3301; Q9967

== ENCOUNTER → 2018-11-03 | Outpatient (CLI) | payer OTHER | LOC: FIMAGING 11:34 ==

== ENCOUNTER → 2018-11-10 | Outpatient (CLI) | payer OTHER | LOC: FIMAGING 09:09 ==